=== PATIENT | male | born 1965 | race Caucasian/White ===

== ENCOUNTER → 2016-08-31 | Outpatient (CLI) | payer OTHER ==
--- NOTE | 2016-09-01 08:51 | MR ---
MRI internal auditory canals without and with contrast HISTORY: Right mastoiditis Multiplanar multisequence and postcontrast images obtained through the brain and internal auditory ca nals with high-resolution small [id number] imaging, postcontrast images obtained following 17 cc M ultiHance IV No comparisons FINDINGS: There is no restricted diffusion to suggest subacute ischemia. No hydrocephalus or hemorrha ge. Corpus callosum, pituitary, cervical medullary junction, cerebellopontine angles are unremarkable . Scattered hyperintensities are present within the deep white matter on inversion recovery and T2-we ighted sequences. There is cortical atrophy present. Orbits show symmetric appearance. Inflammatory c hange present within the ethmoid air cells, maxillary sinus. Minimal inflammatory change associated w ith the mastoid air cells on the right. IMPRESSION: Findings compatible with inflammatory change right mastoid air cells, sinuses as describe d.
== END | disposition home or self-care (01) ==
LOC: RADMRIMAIN 16:35
PROVIDERS: ATTEND Physician Assistant Medical
DX: H70.91 Unspecified mastoiditis, right ear (principal)
CPT/HCPCS: 70553; A9577

== ENCOUNTER → 2016-09-12 | Outpatient (CLI) | payer OTHER ==
--- NOTE | 2016-09-12 14:27 | US ---
EXAMINATION TYPE: US abdomen APPY DATE OF EXAM: 09/12/2016 1:49 PM COMPARISON: NONE CLINICAL HISTORY: R10.31 RLQ Pain. APPENDIX Unable to visualize appendix. 6 images saved show no worrisome solid or cystic mass or abnormal fluid collection. Normal-appearing appendix is not clearly identified. IMPRESSION: As above
--- NOTE | 2016-09-12 16:24 | CT ---
EXAMINATION TYPE: CT abdomen pelvis w con DATE OF EXAM: 09/12/2016 4:15 PM COMPARISON: NONE HISTORY: Right lower quadrant pain on and off, nausea and diarrhea. CT DLP: 791.50 mGycm, Automated Exposure Control for Dose Reduction was Utilized. CONTRAST: CT scan of the abdomen and pelvis is performed with oral and with IV Contrast, patient injected with 100 mL of Omnipaque 300. FINDINGS: LUNG BASES: There is 2 mm hyperdense probable calcified nodule right lower lobe on axial image 6 and 3 mm hyperdense probable calcified nodule right middle lobe on axial image 6. There is 3 mm hyperdens e probable calcified nodule subpleural level left lower lobe on axial image 8. LIVER/GB: There is subcentimeter low dense lesion anterior right hepatic dome on axial image 72 small to further characterize, similar lesion is seen centrally on axial image 20. PANCREAS: No significant abnormality is seen. SPLEEN: Scattered calcifications throughout the spleen are noted. Lung in splenic findings are consis tent with product of old granulomatous disease. ADRENALS: No significant abnormality is seen. KIDNEYS: No significant abnormality is seen. BOWEL: Moderate sized contrast-filled hiatal hernia is present. Oral contrast reaches level of rectum . There is no suspicious small or large bowel dilatation seen. Appendix is felt within normal limits seen from the medial aspect of the cecum best near coronal image 53. There is mild to moderate wall t hickening of the right: Near level of cecum extending almost up to level of hepatic flexure. There is mild to moderate wall thickening involving the left colon. There is some redundancy of the sigmoid c olon extending into the right lower quadrant. Mild wall thickening at level of transverse colon is al so suspected. PROSTATE/SEMINAL VESICLES: Some central zone calcifications are seen in normal size prostate gland. O ccasional scattered pelvic phleboliths are present. LYMPH NODES: No greater than 1cm abdominal or pelvic lymph nodes are appreciated. OSSEOUS STRUCTURES: Posterior interpedicular rods and screws bilaterally at L4-S1 levels is noted. Di sc calcification L5-S1 level is seen. OTHER: No significant additional abnormality is seen bilateral laminectomy. IMPRESSION: No CT evidence for acute appendicitis. Consider multifocal colitis most prominent involv ing right and left colon, differential includes infectious and inflammatory etiologies. Clinical richi elation advised.
== END | disposition home or self-care (01) ==
LOC: RADUSWWP 13:01
PROVIDERS: ATTEND Family Medicine
DX: R10.9 Unspecified abdominal pain (principal); R10.31 Right lower quadrant pain; R10.823 Right lower quadrant rebound abdominal tenderness; R11.0 Nausea
CPT/HCPCS: 76705; 74177; Q9967

== ENCOUNTER → 2017-02-15 | Outpatient (CLI) | payer OTHER ==
--- NOTE | 2017-02-16 06:05 | XR ---
EXAMINATION TYPE: XR hand complete LT DATE OF EXAM: 02/15/2017 CLINICAL HISTORY: Left hand injury per order. Lump and pain after injury 2 weeks ago per patient. TECHNIQUE: Frontal, lateral and oblique images of the left hand are obtained. COMPARISON: None. FINDINGS: There is no acute fracture/dislocation evident in the left hand. The joint spaces in the l eft hand appear within normal limits. The overlying soft tissue appears unremarkable. IMPRESSION: There is no acute fracture or dislocation in the left hand.
== END | disposition home or self-care (01) ==
LOC: RADXRYALE 16:47
PROVIDERS: ATTEND Physician Assistant Medical
DX: S69.92XA Unspecified injury of left wrist, hand and finger(s), initial encounter (principal)

== ENCOUNTER → 2017-08-21 | Outpatient (CLI) | payer OTHER ==
--- NOTE | 2017-08-21 14:23 | XR ---
EXAMINATION TYPE: XR lumbosacral spine min 4V DATE OF EXAM: 08/21/2017 COMPARISON: NONE HISTORY: 52-year-old male with chronic low back pain TECHNIQUE: 5 views FINDINGS: L4-S1 posterior fusion. There is lateral osseous fusion with corresponding laminectomies. Alignment is maintained. Mild endplate spondylosis above the fusion at L3-L4. Vertebral body heights are preserved. IMPRESSION: Status post L4-S1 posterior and lateral osseous fusion. Corresponding laminectomies. Mild degenerativ e disc disease above the fusion. No vertebral compression collapse or malalignment.
== END | disposition home or self-care (01) ==
LOC: RADXRYALE 11:26
PROVIDERS: ATTEND Physician Assistant Medical
DX: M51.37 Other intervertebral disc degeneration, lumbosacral region (principal); Z98.1 Arthrodesis status
CPT/HCPCS: 72110

== ENCOUNTER → 2018-01-29 | Outpatient (CLI) | payer OTHER ==
--- NOTE | 2018-01-29 18:18 | MR ---
EXAMINATION TYPE: MR lumbar spine wo/w con DATE OF EXAM: 01/29/2018 COMPARISON: Plain film 08/21/2017 HISTORY: Low back pain /DDD/Sciatica TECHNIQUE: Multiplanar, multisequence images of the lumbar spine were acquired utilizing 7.5 mL intravenous Gada vist gadolinium contrast. Exam is limited by susceptibility artifact due to posterior fusion at L4-S1. There is mild spinal cur vature. Laminectomies noted as described in plain film report at L5 L1-L2: Normal disc appearance without desiccation. No herniation, protrusion or disc bulging. No ca nal stenosis is present. Foramina are patent bilaterally. L2-L3: Normal disc appearance without desiccation. No herniation, protrusion or disc bulging. No ca nal stenosis is present. Foramina are patent bilaterally. L3-L4: Facet arthropathy with fragility ligamentum flavum is noted, circumferential posterior disc bu lge causes minimal anterior mass effect on the thecal sac, there is only mild spinal stenosis which m ay be contributed by short pedicles, no significant foraminal encroachment. L4-L5: There is some loss of disc height signal, enhancement posterior to the disc space as well as a t the surgical bed thought likely to be due to granulation tissue. No significant spinal stenosis or foraminal encroachment. L5-S1: Loss of disc height and signal is present, there is vacuum phenomenon present Lumbar segments are intact. No paraspinal masses are identified. Conus medullaris has a normal appe arance. IMPRESSION: There are postop changes as described. Broad-based disc bulge present L3-4, degenerative disc changes as described.
== END | disposition home or self-care (01) ==
LOC: RADMRIMAIN 15:40
PROVIDERS: ATTEND Physician Assistant Medical
DX: M51.26 Other intervertebral disc displacement, lumbar region (principal); M51.36 Other intervertebral disc degeneration, lumbar region; Z98.1 Arthrodesis status
CPT/HCPCS: 82565; 72158; A9581

== ENCOUNTER 2018-11-02 09:34 | Day surgery (SDC) | payer OTHER ==
[2018-11-01 08:35] VITALS: BMI 26.6
[~2018-11-02 09:34] MED LIST: LACTATED RINGERS 1,000 ML IV SCH
[2018-11-02 09:56] VITALS: RESP 16; TEMP 97.1
[2018-11-02] MEDS ORDERED: PROPOFOL 10 MG/ML 20 ML VIAL IV ONE (10:32)
[2018-11-02] MEDS ORDERED: GLYCOPYRROLATE 0.2 MG/ML 2 ML VIAL ONE (10:32)
[2018-11-02] MEDS ORDERED: LIDOCAINE 1% INJ 10MG/ML (20 ML MDV) ONE (10:32)
--- NOTE | 2018-11-02 10:48 | P.PCN ---
Date of Procedure: 11/02/18 Procedure(s) Performed: BRIEF HISTORY: Patient is a 53-year-old, pleasant, white male, scheduled for an upper endoscopy as a part of value should of long-standing history of GERD of several years duration. He is being maintained on Prilosec 20 mg twice daily and still occasionally they're as well as epigastric discomfort. His and scheduled for an upper endoscopy to rule out complicated reflux disease. PROCEDURE PERFORMED: Esophagogastroduodenoscopy with biopsy. PREOPERATIVE DIAGNOSIS: Long-standing history of GERD. IV sedation per anesthesia. PROCEDURE: After informed consent was obtained, the patient was brought into the endoscopy unit. IV sedation was administered by Anesthesia under continuous monitoring. Initially the Olympus GIF-140 video endoscope was inserted into the mouth. Esophagus intubated without any difficulty. It was gradually advanced into the stomach and duodenum and carefully examined. The bulb and the second part of the duodenum appeared normal. The scope at this time was withdrawn to the stomach, adequately insufflated with air, and upon careful examination, muc jeffery of the antrum, body, cardia and the fundus appeared normal. The scope was then withdrawn into the esophagus. The GE junction was located at 37 cm from the incisors. Moderate size hiatal hernia noted. The GE junction appeared irregular and there was a small island of Jimenez's appearing mucosa just proximal to the GE junction which measured about 2 mm in size that was biopsied. The rest of the esophagus appeared normal. There were no erosions or ulcerations seen and the patient tolerated the procedure well. IMPRESSION: 1. Moderate size sessile hernia. 2. Irregular GE junction with a small island of Jimenez's appearing mucosa just proximal to the GE junction status post biopsy. RECOMMENDATIONS: The findings of this examination were discussed with the patient as well as his family. He was advised to follow with the biopsy results. He can continue with omeprazole 20 mg twice a day and follow antireflux measures..
[2018-11-02 11:16] VITALS: BP 136/80; PULSE 46
== END 2018-11-02 11:50 | disposition home or self-care (01) ==
LOC: ORWHC2ENDO 09:34
PROVIDERS: ATTEND Internal Medicine Gastroenterology
DX: K22.8 Other specified diseases of esophagus (principal); K44.9 Diaphragmatic hernia without obstruction or gangrene; K21.9 Gastro-esophageal reflux disease without esophagitis; I10 Essential (primary) hypertension; G47.33 Obstructive sleep apnea (adult) (pediatric); Z79.899 Other long term (current) drug therapy; Z88.8 Allergy status to other drugs, medicaments and biological substances
CPT/HCPCS: 88305; 43239; J2001; J2704

== ENCOUNTER → 2019-02-22 | Outpatient (CLI) | payer OTHER ==
--- NOTE | 2019-02-24 20:04 | XR ---
EXAMINATION TYPE: XR tibia fibula LT DATE OF EXAM: 02/22/2019 COMPARISON: NONE HISTORY: 53-year-old male fall injury, pain TECHNIQUE: 2 views FINDINGS: No acute fracture seen. Knee and ankle articulations appear grossly intact. IMPRESSION: No acute osseous abnormality seen.
== END | disposition home or self-care (01) ==
LOC: RADXRYALE 16:01
PROVIDERS: ATTEND Physician Assistant Medical
DX: M79.662 Pain in left lower leg (principal)

== ENCOUNTER → 2021-03-29 | Outpatient (CLI) | payer OTHER ==
--- NOTE | 2021-03-29 11:31 | XR ---
EXAMINATION TYPE: XR shoulder complete LT DATE OF EXAM: 03/29/2021 CLINICAL HISTORY: pain COMPARISON: NONE TECHNIQUE: Three views of the left shoulder are obtained. FINDINGS: There is no acute fracture/dislocation evident. Postsurgical pin placement noted. The acr omioclavicular and glenohumeral joint spaces appear within normal limits. The visualized ribs are in tact and unremarkable. IMPRESSION: 1. There is no acute fracture or dislocation. ICD 10 NO FRACTURE, INITIAL EVALUATION
== END | disposition home or self-care (01) ==
LOC: RADXRYALE 11:12
PROVIDERS: ATTEND Physician Assistant Medical
DX: M25.512 Pain in left shoulder (principal)

== ENCOUNTER → 2021-07-18 | Outpatient (CLI) | payer OTHER ==
--- NOTE | 2021-07-18 14:10 | MR ---
EXAMINATION TYPE: MR shoulder LT wo con DATE OF EXAM: 07/18/2021 COMPARISON: HISTORY: Left shoulder pain and limited movement for 4 months, history of surgery. TECHNIQUE: Multiplanar, multisequence imaging of the left shoulder is performed without contrast. FINDINGS: Rotator Cuff: Partial tearing and increased signal of the distal supraspinatus tendon. Infraspinatus tendon appears within normal limits. Susceptibility artifact overlying the subscapularis muscle bulk. The tendon appears intact and slightly thickened. Rotator cuff muscle bulk preserved. Acromioclavicular Joint: Mild to moderate inferior narrowing. No significant spurring. Distal acromio n morphology unremarkable. Glenohumeral Joint: No significant spurring or effusion. Labrum: The labrum appears grossly intact given limitation of non-arthrogram study. Biceps Tendon: The long head of biceps is in normal location within bicipital groove. Bone marrow signal: No focal abnormal marrow signal is appreciated. Other: Increased fluid subdeltoid/subacromial bursa. IMPRESSION: Evidence of prior surgery at the level of the scapularis muscle and tendon. No recurrent retracted tear. Tendinosis and partial tearing of the supraspinatus tendon noted.
--- NOTE | 2021-07-19 07:18 | MR ---
MRI CERVICAL SPINE: CLINICAL HISTORY: History of prior surgery with neck pain into left shoulder for 4 months. TECHNIQUE: Multiplanar, multisequence imaging of the cervical spine is performed without and with IV contrast, 8 cc of gadolinium was given intravenously. COMPARISON: None. FINDINGS: Exam is suboptimal as it is degraded by some patient motion. There is also some artifact th e level of the surgery noted. Sagittal images of the cervical spine show the craniocervical junction to appear within normal limits. The cervical and upper thoracic spinal cord is likely normal in cour se, caliber, and signal. Some artifact of surgical level is noted making evaluation at this level sl ightly suboptimal. Slight grade 1 anterolisthesis C7 on T1. There is artifact from surgical anterior fusion plate and disc material C5-C7 levels. The vertebral body and intravertebral disk heights are normal above and below surgical levels. The bone marrow signal intensity is within normal limits abo ve and below surgical levels. No abnormal postcontrast enhancement seen. Axial images show C2-C3 and C3-C4 levels to appear within normal limits. Axial images at C4-C5 level show uncovertebral facet degenerative changes with broad-based left parac entral disc protrusion, there is effacement of the anterior thecal sac, there is moderate left greate r than right bilateral neural foraminal narrowing. Axial images at C5-C6 and C6-C7 levels show artifact from surgical hardware. Spinal canal is preserve d. Bilateral neural foramina are patent. Axial images at C7-T1 level shows subtle spondylolisthesis. Spinal canal is preserved. Bilateral neur al foramina are patent. IMPRESSION: Postsurgical changes C5-C7 levels. Slight spondylolisthesis C7-T1 level. Degenerative dorota nges noted C4-C5 level as detailed above.
== END | disposition home or self-care (01) ==
LOC: RADMRIMAIN 13:12
PROVIDERS: ATTEND Orthopaedic Surgery Orthopaedic Surgery of the Spine
DX: M47.22 Other spondylosis with radiculopathy, cervical region (principal); M75.112 Incomplete rotator cuff tear or rupture of left shoulder, not specified as traumatic; M67.814 Other specified disorders of tendon, left shoulder; M43.13 Spondylolisthesis, cervicothoracic region
CPT/HCPCS: 72156; 73221; A9585

== ENCOUNTER → 2021-09-13 | Outpatient (CLI) | payer OTHER ==
--- NOTE | 2021-09-13 12:09 | XR ---
EXAMINATION TYPE: XR chest 2V DATE OF EXAM: 09/13/2021 COMPARISON: Chest x-ray November 07, 2014 HISTORY: Presurgical. TECHNIQUE: Frontal and lateral views of the chest are obtained. FINDINGS: There is no focal air space opacity, pleural effusion, or pneumothorax seen. The cardiac silhouette size is within normal limits. Anterior fusion plate cervical thoracic junction redemonstra myriam. Large metallic staple left scapula redemonstrated. IMPRESSION: No acute process.
== END | disposition home or self-care (01) ==
LOC: RADXRYALE 11:35
PROVIDERS: ATTEND Physician Assistant Medical
DX: Z01.811 Encounter for preprocedural respiratory examination (principal)
CPT/HCPCS: 71046

== ENCOUNTER → 2022-10-08 | Outpatient (CLI) | payer OTHER ==
--- NOTE | 2022-10-08 18:15 | MR ---
EXAMINATION TYPE: MR cervical spine wo con DATE OF EXAM: 10/08/2022 INDICATION: Patient age:Male; 57 years old; Reason for study: M54.12, M54.2, M47.22. Neck pain into left shoulder, arm, and fingers COMPARISON: MR 07/18/2021 TECHNIQUE: Multi planar, multi sequence imaging was performed utilizing: T1-weighted, T2-weighted, an d turbo inversion recovery imaging of the cervical spine. IV Contrast: None FINDINGS: Alignment: The cervical vertebral bodies have preserved heights. Alignment is within normal limits gi altagracia patient positioning. Bones: Postsurgical changes to the C5-C7. Bone signal is within normal limits. No abnormal bone marro w edema on inversion recovery sequences. Cardiopericardial interventricular Cord: The spinal cord is unremarkable with regards to their signal intensity and morphology. Discs: Multilevel disc desiccation is present. C2-C3: No significant disc pathology. The spinal canal is patent. No neural foraminal stenosis. C3-C4: No significant disc pathology. The spinal canal is patent. Bilateral facet and uncovertebral joint arthropathy are present with mild bilateral neural foraminal stenosis. C4-C5: No significant disc pathology. The spinal canal is patent. Bilateral facet and uncovertebral joint arthropathy are present with mild bilateral neural foraminal stenosis. C5-C6: No significant disc pathology. The spinal canal is patent. Bilateral facet and uncovertebral joint arthropathy are present with mild bilateral neural foraminal stenosis. C6-C7: No significant disc pathology. The spinal canal is patent. Bilateral facet and uncovertebral joint arthropathy are present with mild bilateral neural foraminal stenosis. C7-T1: No significant disc pathology. The spinal canal is patent. No neural foraminal stenosis. Other: None. IMPRESSION: 1. No evidence for disc herniation or significant spinal canal stenosis or neural foraminal stenosis. No significant change from prior. 2. Multilevel disc degeneration with associated osteoarthritic changes. 3. Postsurgical changes to the C5-C7 with hardware in appropriate position given limitations of this exam.
== END | disposition home or self-care (01) ==
LOC: RADMRIMAIN 13:24
PROVIDERS: ATTEND Physician Assistant
DX: M47.22 Other spondylosis with radiculopathy, cervical region (principal); M50.10 Cervical disc disorder with radiculopathy, unspecified cervical region; M75.22 Bicipital tendinitis, left shoulder
CPT/HCPCS: 72141

== ENCOUNTER → 2022-10-29 | Outpatient (CLI) | payer OTHER ==
--- NOTE | 2022-10-29 12:26 | MR ---
EXAMINATION TYPE: MR shoulder LT wo con DATE OF EXAM: 10/29/2022 COMPARISON: Prior MRI left shoulder July 18, 2021 HISTORY: Lt shoulder pain with difficulty raising arm overhead for 40 years, Previous lt shoulder morelia tamar TECHNIQUE: Multiplanar, multisequence imaging of the left shoulder is performed without contrast. FINDINGS: Rotator Cuff: Persistent increased signal along the supraspinatus tendon . Worsening focal partial te ar of the anterior fibers of the supraspinatus tendon measuring 7 mm AP diameter sagittal image 7 x 8 mm transversely coronal image 10. Rotator cuff muscle bulk is preserved. Acromioclavicular Joint: The acromioclavicular joint redemonstrates mild narrowing. No significant sp urring. Underlying fat plane maintained. Distal acromion morphology unremarkable. Glenohumeral Joint: Moderate narrowing is present. No significant effusion or spurring. Labrum: Increased signal superior labrum current study consistent with tearing. Biceps Tendon: The long head of biceps is in normal location within bicipital groove. Intracapsular p ortion less well-seen due to susceptibility artifact but is felt within normal limits. Bone marrow signal: Susceptibility artifact anteriorly obscuring significant portions of the subscapu nathalie tendon is redemonstrated. Other: Increased fluid signal subdeltoid/subacromial bursa again seen. IMPRESSION: Worsening partial tear involving anterior portion of the supraspinatus tendon. New superi or labral tear.
== END | disposition home or self-care (01) ==
LOC: RADMRIMAIN 11:29
PROVIDERS: ATTEND Orthopaedic Surgery
DX: M75.112 Incomplete rotator cuff tear or rupture of left shoulder, not specified as traumatic (principal); M75.22 Bicipital tendinitis, left shoulder; M54.12 Radiculopathy, cervical region

== ENCOUNTER → 2024-03-12 | Outpatient (CLI) | payer OTHER ==
--- NOTE | 2024-03-12 13:38 | XR ---
EXAMINATION TYPE: XR elbow complete RT DATE OF EXAM: 03/12/2024 1:33 PM INDICATION: Patient age:Male; 58 years old; Reason for study: [id number] RT ELBOW PAIN; [facility]. COMPARISON: None TECHNIQUE: The right elbow was examined in AP, lateral, and oblique projections. FINDINGS: No evidence of any acute osseous pathology, joint dislocation, or soft tissue swelling is n oted. No osseous erosions. No radiopaque foreign body. No evidence of joint effusion is present. IMPRESSION: No evidence of acute fracture. [facility], , 03/12/2024 1:36 PM
== END | disposition home or self-care (01) ==
LOC: RADXRYALE 13:24
PROVIDERS: ATTEND Physician Assistant Medical
DX: M25.521 Pain in right elbow (principal)